=== PATIENT | female | born 1955 | race Caucasian/White ===

== ENCOUNTER 2017-12-30 11:59 | Emergency (ER) | payer OTHER ==
[~2017-12-30] VITALS: Ht 165.1 cm; Wt 99.8 kg
--- OUTSIDE RECORDS SUMMARY | 2017-12-30 12:02 | XMS REPORT | Clinical Summary ---
Author Author [facility] [facility] [place] [facility] Address Unknown Phone Unavailable Care Team Providers Care Shank Breaker Name Role Phone Jeramy Mckeon MD PCP Allergies Not on File Current Medications Not on file Active Problems Not on file Encounters Date Type Specialty Care Team Description 11/29/2017 Hospital Procedural Cardiology Bernabe Mckeon MD Right leg pain Encounter 11/29/2017 Lab Lab Bernabe Mckeon MD Canceled (Scheduling Error) 11/29/2017 Transcribe Procedural Cardiology Bernabe Mckeon MD Right leg pain (Primary Orders Dx) after 12/29/2016 Social History Tobacco Use Types Packs/Day Years Used Date Never Assessed Sex Assigned at Date Recorded Not on file Last Filed Vital Signs Not on file Plan of Treatment Health Maintenance Due Date Last Done Comments CERVICAL CANCER SCREENING 1974 BREAST CANCER SCREENING 2003 COLON CANCER SCREENING 2003 SHINGRIX VACCINE (#1) 2003 ZOSTER VACCINE 2013 INFLUENZA VACCINE 02/27/2018 Results * Pv duplex venous lower extremity (11/29/2017 2:01 PM) Specimen Performing Laboratory [facility] [address] [place] [address] Narrative Vascular Ultrasound Laboratory Lower Extremity Venous Report [address] [place] [address] Pat.Name:VERONICA KIDD Pat.ID:[id number] .Date: 11/29/2017Refer.MD:BERNABE MCKEON MD Exam Time: 1:37:00 PMStudy Type:LE Venous DOBAge:1955,62YSex: FEMALE Sonogrphr: Joanne Sarabia, JOE, RVT Pat. Stat.:Outpatient TapeVol: ED, CPT - 4: 06964 Echo Event ID:[id number] Order ID:[id number] Reason for Study:Right calf pain History / Clinical:Breast Ca Procedures:Grayscale/2D, Colorflow, Doppler Race:C SUMMARY: * Normal Reflux Criteria:< 0.5 seconds * Abnormal Reflux Criteria:> or equal to 0.5 seconds DUPLEX SCAN OBSERVATIONS Deep VeinsSuperficial Veins RightLeft RightLeft GSV (prox) Normal CFV Incompetent Incompetent (above knee) Femoral NormalGSV (dist) Normal Profunda Normal(below knee) Popliteal Normal PT (prox) Normal SSV Normal PT (dist) Normal Peroneal Normal RIGHT:There is normal compressibility with no evidence of echogenic material noted within the lumen of the visualized veins. Colorflow and Doppler signals are normal, except for common femoral vein, which is incompetent. PRELIMINARY FINDINGS 1. No evidence of venous thrombosis of the visualized veins. 2. Incompetence of right and left common femoral veins. Preliminary findings reported to Joanna at 3:01 pm on 11/29/17. PHYSICIAN INTERPRETATION Venous examination of the both lower extremities demonstrated no evidence of venous thrombosis in the visualized veins.Bilateral common femoral vein demonstrate venous reflux. Signed 11/29/2017 03:27 PM Luis Antonio Piña MD, RPVI Procedure Note Interface, Radiology Results In - 11/29/2017 3:27 PM CDT Vascular Ultrasound Laboratory Lower Extremity Venous Report [address] [place] [address] Pat.Name: VERONICA KIDD.ID: [id number] .Date: 11/29/2017 Refer.MD: BERNABE MCKEON MD Exam Time: 1:37:00 PM Study Type:LE Venous Age: 4 1955,62Y Sex: FEMALE Sonogrphr: Joanne Sarabia, JOE, RVT Pat. Stat.:Outpatient Tape Vol: ED, CPT - 4: 78234 Echo Event ID:[id number] Order ID: [id number] Reason for Study:Right calf pain History / Clinical:Breast Ca Procedures:Grayscale/2D, Colorflow, Doppler Race: C SUMMARY: * Normal Reflux Criteria: < 0.5 seconds * Abnormal Reflux Criteria: > or equal to 0.5 seconds DUPLEX SCAN OBSERVATIONS Deep Veins Superficial Veins Right Left Right Left GSV (prox) Normal CFV Incompetent Incompetent (above knee) Femoral Normal GSV (dist) Normal Profunda Normal (below knee) Popliteal Normal PT (prox) Normal SSV Normal PT (dist) Normal Peroneal Normal RIGHT: There is normal compressibility with no evidence of echogenic material noted within the lumen of the visualized veins. Colorflow and Doppler signals are normal, except for common femoral vein, which is incompetent. PRELIMINARY FINDINGS 1. No evidence of venous thrombosis of the visualized veins. 2. Incompetence of right and left common femoral veins. Preliminary findings reported to Joanna at 3:01 pm on 11/29/17. PHYSICIAN INTERPRETATION Venous examination of the both lower extremities demonstrated no evidence of venous thrombosis in the visualized veins. Bilateral common femoral vein demonstrate venous reflux. Signed 11/29/2017 03:27 PM Luis Antonio Piña MD, RPVI after 12/29/2016 Insurance Payer Benefit Subscriber ID Type Phone Address Plan / Group CESAR SOTO xxxxxxxxxxx O ACCESS/NET WORK Work: [id number] [place] [id number] Home:
--- OUTSIDE RECORDS SUMMARY | 2017-12-30 12:02 | XMS REPORT ---
[facility] Address Unknown Phone Unavailable Care Team Providers Care Crown Buffer Name Role Phone MIRIAM HARO Unavailable Unavailable Problems This patient has no known problems. Allergies, Adverse Reactions, Alerts This patient has no known allergies or adverse reactions. Medications This patient has no known medications. Results Test Description Test Time Test Comments Text Results Atomic Results Result Comments TISSUE EXAM 2017-12-07 09:20:00 Surgical Pathology Report Case: [id number] Authorizing Provider: Crayn Washburn, Collected: 11/23/2017 154 Ordering Location: [facility] Received: 11/23/2017 1543 Pathologist: Farnaz Knox MD Specimens: A) - Breast, Right, ULTRASOUND GUIDED BX OF RIGHT BREAST 3:00 MASS B) - Lymph Node, Axillary, Right, ULTRASOUND GUIDED BX OF RIGHT AXILLARY ABNORMAL LYMPH NODE REASON FOR ADDENDUM: TO REPORT HER2 FISH RESULT.HER2 AMPLIFICATION: POSITIVERATIO: 2.61AVERAGE NUMBER HER2 SIGNALS/ NUCLEUS: 6.52AVERAGE NUMBER [id number] SIGNALS/NUCLEUS: 2.5PB: [id number], [id number], [id number] electronically signed by Farnaz Knox MD on 12/07/2017 at 9:20 AMREASON FOR ADDENDUM: TO REPORT BIOMARKERS RESULTS. - BIOMARKERS PERFORMED ON SECTION # A-1 - ESTROGEN RECEPTOR: POSITIVE - PROPORTION SCORE: 5/5 - INTENSITY SCORE: 3/3 - SUMMARY: 100% POSITIVE, STRONG INTENSITY - PROGESTERONE RECEPTOR: POSITIVE - PROPORTION SCORE: 2/5 - INTENSITY SCORE: 1/3 - SUMMARY: 1% POSITIVE, INTERMEDIATE INTENSITY - HER 2 OVER-EXPRESSION: POSITIVE (SCORE: 3+), GRANULAR STAIN TISSUE SENT FOR HER2 FISH FOR POSITIVE CONFIRMATION - Ki67: 57% (cut off-20%)CAP REGULATION: FIXATION TIME FOR BIOMARKERS ASSESSMENTCollection date and time: 11/23/2017 1543Placed in fixative date and time: 11/23/2017 1543Removed from formalin date and time: 11/24/2017 0400Methodology: Fixation type and length: tissue was fixed in 10% neutral buffered formalin for a minimal of at least 6 hours and not longer than 72 hours. Antibody and Assay Methodology: Antibodies for ER, PgR, Her2 and Ki67 were assessed using clones SP1 ([place]), [id number] (DAKO), [id number] (FDA Approved [place] [employer]) and [id number] ([place]) respectively. Control Slides Examined: In-house known ER, GA, HER2 and Ki67 positive controls were evaluated along with test tissue. These control slides run alongside of the patients sample show appropriate staining. Internal controls when available are evaluated.Interpretive Criteria: The staining results according to the ASCO/ CAP guidelines for HER2 (Porter AC et al. Arch Pathol Lab Med 2012May 05 and ER/ GA (Kelli CEBALLOS et al. Arch Pathol Lab Med 2010; 134:e48-e72) by ASCO/CAP guidelines, ER and GA "positive" requires greater or equal to 1% tumor cells showing nuclear staining. HER 2 geovanna "positive" (3+) requires circumferential membrane staining that is complete and intense within more than 10% of the invasive tumor cells. The ER/GA Proportion Score indicates the proportion of positive staining tumor cells (0=none; 1 < 1/100; 2=1/100-1/10; 3=1/10-1/3; 4=1/ 3-2/3; 5> 2/3). The intensity score indicates the average intensity of positive staining tumor cells (0=none; 1=weak; 2=intermediate; 3=strong). For the purpose of defining "positive", the proportion and intensity scores were added to obtain a total score (range 0-8). ER and PgR "positive" (total score > 2) were defined in studies correlating IHC total scores with clinical outcome in patients receiving hormonal therapy (see: Modern Pathol 11:155, 1998; J Clin Oncol 17:1474, 1999; Int J Cancer 89:111, 2000; Breast Cancer Res Treat 76: S36[abst#30], 2002). Immunohistochemistry technical testing was performed at [facility], Pathology Laboratory where it was developed and its performance characteristics were determined. It has not been cleared or approved by the U.S. Food and Drug Administration. The FDA has determined that such clearance or approval is not necessary. The test is used for clinical purposes. It should not be regarded as investigational or for research. This laboratory is certified under the Clinical Laboratory Improvement Amendments of 1988 (CLIA-88) as qualified to perform high complexity clinical laboratory testing.Addendum electronically signed by Farnaz Knox MD on 11/27/2017 at 11:32 AMA. 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 LYMPH NODE, RIGHT AXILLARY REGION, ULTRASOUND GUIDED CORE BIOPSY: - METASTATIC CARCINOMA TO LYMPH NODE Signing Pathologist Direct Phone Line: [phone] signed by Farnaz Knox MD on 11/26/2017 at 12:08 PMBiomarkers are pending and an addendum will follow.A. 25052 x 1, 04518 x 4 B. 81462 x 1 3:00 mass consistent with carcinoma, axillary lymph node with focal cortical thickening. A. Ultrasound- guided biopsy of right breast 3:00 massB. Ultrasound-guided biopsy of right axilla abnormal lymph node. Specimen is received in two containers of formalin both labeled with the patient's information. Part A labeled "ultrasound-guided biopsy of right breast 3:00 mass" and it consists of three yellow-white breast core biopsies ranging in length from 1.6 to 2 cm. Ink code blue.Specimen is entirely submitted A1. Part B labeled "ultrasound-guided biopsy of right axillary abnormal lymph node" of three yellow-white breast core biopsies ranging in length from 0.2 to 1 cm. Ink code red. Specimen is entirely submitted B1. CG/bc A - B. Performed. MM, U/S, BIOPSY, BREAST, RIGHT 2017-11-28 09:51:00 Reason for Exam:->n63.1 Addendum [facility] [id number]: 11/28/2017 Deonte Portillo M.D. The malignant reports (metastatic node) were faxed and confirmed with Dr Haro's branch service representative Elke on 11/27/17 at 1316. Addendum EndsMRN#: [id number] - MM , U/S, BIOPSY, BREAST, RIGHTULTRASOUND GUIDED BIOPSY RIGHT BREAST WITH MARKING DEVICE INSERTED AND POST DIGITAL MAMMOGRAPHIC IMAGIN11/23/2017PATIENT CONSENT : The procedure, risks and benefits, alternatives were discussed with the patient. Informed consent was obtained. A time-out was performed. An ultrasound guided biopsy using real-time ultrasound was performed for the lymph node located in the right axilla. This was described on the previous ultrasound report. The skin was prepped in the usual manner. Local anesthetic was administered to the access site. A small incision was made in the breast. An 18 gauge biopsy needle was placed adjacent to the abnormality under ultrasound guidance. Once the needle was documented to be in the correct location, a specimen was obtained using an automated biopsy device. A Hydromark clip was inserted into the biopsy cavity. As a separate procedure in a separate room with a dedicated machine, post procedure digital mammographic imaging was obtained. The specimen was sent to the laboratory for pathological analysis. IMPRESSION: ULTRASOUND GUIDED BIOPSYUltrasound guided biopsy of the lymph node in the right axilla was successful with no apparent post procedure complications. Waiting for pathology results. Caryn Washburn M.D. mc/:11/23/2017 14:55:23 Hydrogeology Professor: Con LinnM.SHerb, [facility] [id number] , U/S, BIOPSY, BREAST, RIGHT 2017-11-28 09:49:00 Reason for Exam:->n63.1 Addendum BeginsMRN#: [id number]: 11/28/2017 Deonte Portillo M.D. The malignant reports ([facility]) were faxed and confirmed with Dr Haro's branch service representative Elke on 11/27/17 at 1316. Addendum EndsMRN#: [id number] - MM, U/S, BIOPSY, BREAST, RIGHTULTRASOUND GUIDED BIOPSY RIGHT BREAST WITH MARKING DEVICE INSERTED AND POST DIGITAL MAMMOGRAPHIC IMAGIN11/23/2017PATIENT CONSENT: The procedure, risks and benefits, alternatives were discussed with the patient. Informed consent was obtained. A time-out was performed. An ultrasound guided biopsy using real-time ultrasound was performed for the mass located in the right breast at 3 o'clock middle depth. This was described on the previous ultrasound report. The skin was prepped in the usual manner. Local anesthetic was administered to the access site. A small incision was made in the breast. A biopsy needle was placed adjacent to the abnormality under ultrasound guidance. Once the needle was documented to be in the correct location, three specimens were obtained using an Achieve automated firing device. A clip was inserted into the biopsy cavity. A skin adhesive was applied to the access site. As a separate procedure in a separate room with a dedicated machine, post procedure digital mammographic imaging was obtained. The specimens were sent to the laboratory for pathological analysis. IMPRESSION: ULTRASOUND GUIDED BIOPSYUltrasound guided biopsy of the mass in the right breast at 3 o' clock middle depth was successful with no apparent post procedure complications. Waiting for pathology results. Caryn Washburn M.D. mc/:2017 14:54:25 Hydrogeology Professor: Con YangSHerb, [facility] [id number] , DIGITAL, UNILATERAL, CONFER JJ, MAMMO, RIGHT INCLUDING CAD 2017-11-23 14 :56:00 right breast mass #[id number] - MM, DIGITAL, UNILATERAL, CONFER JJ, MAMMO, RIGHT INCLUDING CADUNILATERAL RIGHT DIGITAL PROBLEM SOLVING MAMMOGRAM WITH CAD POST-PROCEDURE IMAGING FOR MARKER PLACEMENT: 2017Comparison is made to exams dated: 11/23/2017 ultrasound biopsy and 2017 ultrasound biopsy - [facility]. There are scattered fibroglandular elements in the right breast that could obscure a lesion on mammography. Current study was also evaluated with a Computer Aided Detection (CAD) system. There is a marker clip in the appropriate position in the right axilla. This marker clip placement is at biopsy site. There also is a marker clip in the appropriate position in the right breast at 3 o'clock middle depth. This marker clip placement is at biopsy site. IMPRESSION: POST PROCEDURE MAMMOGRAM FOR MARKER PLACEMENTThere was a successful marker clip placement in the right axilla. There was a successful marker clip placement in the right breast at 3 o'clock middle depth. Caryn Washburn M.D. mc/:11/23/2017 14:56:56 Hydrogeology Professor: Marli Cabral RT(R)(M), [facility] Mammogram BI-RADS: Post-procedure mammogram for marker placement [id number] , U/S, BREAST, BILATERAL 2017-11-23 09:56:00 Reason for Exam:->breast mass #[id number] - MM, U/S, BREAST, BILATERALULTRASOUND OF BOTH BREASTS : 11/23/2017 Technique: Bilateral whole breast color flow and real-time ultrasound including evaluation of all four quadrants and the retroareolar regions of both breasts and bilateral axilla was performed. There is a 3.0 x 2.6 x 2.1 cm irregular mass in the right breast at 3 o'clock middle depth. There also is a lymph node with focal cortex thickening in the right axilla. There are no suspicious sonographic findings in the left breast. IMPRESSION: HIGHLY SUGGESTIVE OF MALIGNANCY - FOLLOW-UP RECOMMENDED The 3 cm irregular mass in the right breast at 3 o'clock middle depth is highly suggestive of malignancy. The lymph node with focal cortex thickening in the right axillary tail is at an intermediate suspicion for malignancy. Ultrasound-guided core needle biopsy is recommended and scheduled to be performed later today, 2017. Caryn Washburn M.D. /:11/23/2017 09:56:51 Biopsy Required Ultrasound BI-RADS: 5 Highly suggestive of malignancy [id number] , DIGITAL, MAMMO, SCREENING, BILATERAL INCLUDING CAD 2017-11-22 10:41:00 Reason for Exam:->Well woman #[id number] - MM, DIGITAL, MAMMO, SCREENING, BILATERAL INCLUDING CADBILATERAL DIGITAL SCREENING MAMMOGRAM WITH CAD : 11/22/2017CLINICAL: Routine screening mammogram. Comparison is made to exams dated: 01/07/2013 mammogram, 09/23/2010 mammogram, and 09/14/2010 mammogram - [facility]. There are scattered fibroglandular elements in both breasts that could obscure a lesion on mammography. Current study was also evaluated with a Computer Aided Detection ( CAD) system. Benign appearing calcifications are present in both breasts. There is a 3.5 cm irregular mass in the right breast at 3 o'clock middle depth. No other significant masses, calcifications, or other findings are seen in either breast. IMPRESSION: INCOMPLETE: NEEDS ADDITIONAL IMAGING EVALUATIONThe 3.5 cm irregular mass in the right breast is indeterminate. An ultrasound is recommended for further evaluation. Santos Nolan M.D. ds/:2017 10:41:23 Addional Imaging Needed Mammogram BI-RADS: 0 Indeterminate G0202 , BONE DENSITY STUDY 2017-11-22 10:31:00 Reason for Exam:->Menopausal syndrome FINAL REPORT Bone Mineral Density Date: November 22, 2017 Comparison: August 24, 2006 Clinical History: Osteoporosis Screening Report: Bone Mineral Density Measurement: Lumbar Spine: 1.237 gm/ gp4Ickd Femoral Neck: 1.001 gm/cm2 Standard Deviation as compared to the young adult population (T -score) Lumbar Spine: 0.5 Mean Femoral Neck: -0.3 Standard Deviation as compared to the age matched controls (Z-score) Lumbar Spine: 0.9Mean Femoral Neck: 0.4 These findings are consistent with a normal bone mineral density of the lumbar spine. There is no increased risk of an osteoporotic fracture of the lumbar spine as compared to the young adult population. These findings are consistent with a normal bone mineral density of the femoral neck . There is no increased risk of an osteoporotic fracture of the femoral neck as compared to the young adult population. Comment: Computer printout from the exam will follow this report.The visualized regional skeleton appears aligned. There has been an interval decrease in the bone mineral density as compared to the baseline study. Signed: Reena Tran Verified Date/Time: 11/22/2017 10:31:44 Reading Location: [facility] Radiology Reading Room 10: 31 AM RAD, CHEST, 2 VIEWS 2017-11-22 09:58:00 Reason for Exam:->Encounter for screening for respiratory tuberculosis [Z11.1] FINAL REPORT Chest radiograph Clinical History: TuberculosisComparison: No comparisonViews: Two Chest x-ray:The cardiac and mediastinal silhouettes are unremarkable. There is no evidence of a pneumothorax. There is no evidence of a pleural effusion. There is no evidence of overt cardiac failure. The visible regional skeleton is intact. There is no evidence of a focal parenchymal opacity. Impression:No active cardiopulmonary disease. Signed: Reena Tran Verified Date/Time: 11/22/2017 09:58:05 Reading Location: [facility] Radiology Reading Room
--- OUTSIDE RECORDS SUMMARY | 2017-12-30 12:02 | XMS REPORT | Clinical Summary ---
Author Author [facility] Address Unknown Phone Unavailable Care Team Providers Care Enrollment Coordinator Name Role Phone PCP Unavailable Allergies Active Allergy Reactions Severity Noted Date Comments Penicillins Rash Low 11/23/2017 Current Medications Prescription Sig. Disp. Refills Start End Date Status Date cloNIDine HCl (CATAPRES) Take 0.1 mg by mouth 2 Active 0.1 MG tablet (two) times daily. amlodipine-benazepril Take 1 capsule by mouth Active (LOTREL) 5-40 mg per daily. capsule Active Problems Not on file Encounters Date Type Specialty Care Team Description 11/23/2017 [facility] 11/22/2017 [facility] j[facility]son Screening breast Encounter examination 11/22/2017 [facility] Menopausal disorder Encounter 11/22/2017 [facility] Screening examination for Encounter pulmonary tuberculosis 11/16/2017 Outside Orders Central Scheduling Gerry Ferrera Menopausal disorder (Primary Dx);Screening breast examination;Screening examination for pulmonary tuberculosis;Breast mass;Mass of right breast after 12/29/2016 Social History Tobacco Use Types Packs/Day Years Used Date Never Smoker Smokeless Tobacco: Never Used Sex Assigned at Date Recorded Not on file Last Filed Vital Signs Vital Sign Reading Time Taken Blood Pressure 150/75 11/23/2017 2:13 PM CDT Pulse 90 11/23/2017 2:13 PM CDT Temperature - - Respiratory Rate 19 11/23/2017 2:13 PM CDT Oxygen Saturation 98% 11/23/2017 2:13 PM CDT Inhaled Oxygen - - Concentration Weight 99.8 kg (220 lb) 11/23/2017 12:45 PM CDT Height 165.1 cm (5' 5") 11/23/2017 12:45 PM CDT Body Mass Index 36.61 11/23/2017 12:45 PM CDT Plan of Treatment Not on file Results * Tissue Exam (11/23/2017 3:43 PM) Component Value Ref Range Case Report Surgical Pathology Report Case: [id number] Authorizing Provider: Caryn Washburn, Collected: 11/23/2017 Anna3 Ordering Location: [facility] Received: 018 1543 Pathologist: Farnaz Knox MD Specimens: A) - Breast, Right, ULTRASOUND GUIDED BX OF RIGHT BREAST 3:00 MASS B) - Lymph Node, Axillary, Right, ULTRASOUND GUIDED BX OF RIGHT AXILLARY ABNORMAL LYMPH NODE ADDENDUM 2 REASON FOR ADDENDUM: TO REPORT HER2 FISH RESULT. HER2 AMPLIFICATION: POSITIVE RATIO: 2.61 AVERAGE NUMBER HER2 SIGNALS/ NUCLEUS: 6.52 AVERAGE NUMBER [id number] SIGNALS/NUCLEUS: 2.5 PB: [id number], 00516, [id number] ADDENDUM REASON FOR ADDENDUM: TO REPORT BIOMARKERS RESULTS. - [...] FOR POSITIVE CONFIRMATION - Ki67: 57% (cut off-20%) CAP REGULATION: FIXATION TIME FOR BIOMARKERS ASSESSMENT Collection date and time: 11/23/2017 1543 Placed in fixative date and time: 11/23/2017 1543 Removed from formalin date and time: 11/24/2017 0400 Methodology: Fixation type and length: tissue was fixed in 10% neutral buffered formalin for a minimal of at least 6 hours and not longer than 72 hours. Antibody and Assay Methodology: Antibodies for ER, PgR, Her2 and Ki67 were assessed using clones [id number] (Beacon), [id number] (DAKO), [id number] (FDA Approved [employer]) and [id number] (Beacon) respectively. Control Slides Examined: In-house known ER, NV, HER2 and Ki67 positive controls were evaluated along with test tissue. These control slides run alongside of the patients sample show appropriate staining. Internal controls when available are evaluated. Interpretive Criteria: The staining results according to the ASCO/CAP guidelines for HER2 (Porter GILBERT et al. Arch Pathol Lab Med 2012May 05 and ER/NV (Kelli CEBALLOS et al. Arch Pathol Lab Med 2010; 134:e48-e72) by ASCO/CAP guidelines, ER and NV positive requires greater or equal to 1% tumor cells showing nuclear staining. HER 2 geovanna positive (3+) requires circumferential membrane staining that is complete and intense within more than 10% of the invasive tumor cells. The ER/NV Proportion Score indicates the proportion of positive staining tumor cells (0=none; 1 < 1/100; 2=1/100-1/10; 3=1/10-1/3; 4=1/3-2/3; 5> 2/3). The intensity score indicates the average intensity of positive staining tumor cells (0=none; 1=weak; 2=intermediate; 3=strong). For the purpose of defining "positive", the proportion and intensity scores were added to obtain a total score (range 0-8). ER and PgR "positive" (total score >2) were defined in studies correlating IHC total scores with clinical outcome in patients receiving hormonal therapy (see: Modern Pathol 11:155, 1998; J Clin Oncol 17:1474, 1999; Int J Cancer 89:111, 2000; Breast Cancer Res Treat 76:S36[abst#30], 2002). Immunohistochemistry technical testing was performed at [facility], Pathology Laboratory where it was developed [...] qualified to perform high complexity clinical laboratory testing. DIAGNOSIS A. BREAST, RIGHT, 3:00 O'CLOCK, ULTRASOUND GUIDED CORE [...] LYMPH NODE Signing Pathologist Direct Phone Line: [phone] COMMENT Biomarkers are pending and an addendum will follow. CPT Code(s) A. 11113 x 1, 83262 x 4 B. 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 SPECIMEN SOURCE A. Ultrasound-guided biopsy of right breast 3:00 mass B. Ultrasound-guided biopsy of right axilla abnormal lymph node. GROSS DESCRIPTION Specimen is received in two containers of formalin both labeled with the patient's information. Part A labeled "ultrasound-guided biopsy of right breast 3:00 mass" and it consists of three yellow-white breast core biopsies ranging in length from 1.6 to 2 cm. Ink code blue. Specimen is entirely submitted A1. Part B labeled "ultrasound-guided biopsy of right axillary abnormal lymph node" of three yellow-white breast core biopsies ranging in length from 0.2 to 1 cm. Ink code red. Specimen is entirely submitted B1. /bc MICROSCOPIC DESCRIPTION A - B. Performed. Specimen Performing Laboratory Tissue - Lymph Node, [facility] Axillary, Right [address] [place] [address] * MM, DIGITAL, UNILATERAL, CONFER JJ, MAMMO, RIGHT (11/23/2017 2:13 PM) Specimen Performing Laboratory [facility] Narrative #[id number] - MM, DIGITAL, UNILATERAL, CONFER JJ, MAMMO, RIGHT INCLUDING CAD UNILATERAL RIGHT DIGITAL PROBLEM SOLVING MAMMOGRAM WITH CAD POST-PROCEDURE IMAGING FOR MARKER PLACEMENT: 11/23/2017 Comparison is made to exams dated:11/23/2017 ultrasound biopsy and 11/23/2017 ultrasound biopsy - Pending sale to [facility]. There are scattered fibroglandular elements in the right breast that could obscure a lesion on mammography. Current study was also evaluated with a Computer Aided Detection (CAD) system. There is a marker clip in the appropriate position in the right axilla.This marker clip placement is at biopsy site. There also is a marker clip in the appropriate position in the right breast at 3 o'clock middle depth.This marker clip placement is at biopsy site. IMPRESSION: POST PROCEDURE MAMMOGRAM FOR MARKER PLACEMENT There was a successful marker clip placement in the right axilla. There was a successful marker clip placement in the right breast at 3 o'clock middle depth. Caryn Washburn M.D. /:11/23/2017 14:56:56 Staple Processing Machine Operator: Marli URRUTIA)(Radha), Pending sale to [facility] Mammogram BI-RADS: Post-procedure mammogram for marker placement [id number] Procedure Note Interface, External Ris In - 11/23/2017 4:04 PM CDT #[id number] - MM, DIGITAL, UNILATERAL, CONFER JJ, MAMMO, RIGHT INCLUDING CAD UNILATERAL RIGHT DIGITAL PROBLEM SOLVING MAMMOGRAM WITH CAD POST-PROCEDURE IMAGING FOR MARKER PLACEMENT: 11/23/2017 Comparison is made to exams dated: 11/23/2017 ultrasound biopsy and 11/23/2017 ultrasound biopsy - Pending sale to [facility]. There are scattered fibroglandular elements in the [...] site. IMPRESSION: POST PROCEDURE MAMMOGRAM FOR MARKER PLACEMENT There was a successful marker clip placement in the right axilla. There was a successful marker clip placement in the right breast at 3 o'clock middle depth. Caryn Washburn M.D. /:11/23/2017 14:56:56 Staple Processing Machine Operator: Marli URRUTIA)(Radha), Pending sale to [facility] Mammogram BI-RADS: Post-procedure mammogram for marker placement [id number] * US guided breast biopsy right (11/23/2017 1:46 PM) Only the most recent of 2 results within the time period is included. Specimen Performing Laboratory [facility] Narrative Addendum Begins AMENDMENT: 11/28/2017 Deonte Portillo M.D. The malignant reports ([facility]) were faxed and confirmed with Dr Ferrera's field sales representative Elke on 11/27/17 at 1316. Addendum Ends #[id number] - MM, U/S, BIOPSY, BREAST, RIGHT ULTRASOUND GUIDED BIOPSY RIGHT BREAST WITH MARKING DEVICE INSERTED AND POST DIGITAL MAMMOGRAPHIC IMAGIN11/23/2017 PATIENT CONSENT: The procedure, risks and benefits, alternatives were discussed with the patient. Informed consent was obtained. A time-out was performed. An ultrasound guided biopsy using real-time ultrasound was performed for the mass located in the right breast at 3 o'clock middle depth. This was described on the previous ultrasound report.The skin was prepped in the usual manner.Local anesthetic was administered to the access site.A small incision was made in the breast.A biopsy needle was placed adjacent to the abnormality under ultrasound guidance.Once the needle was documented to be in the correct location, three specimens were obtained using an Achieve automated firing device.A clip was inserted into the biopsy cavity.A skin adhesive was applied to the access site.As a separate procedure in a separate room with a dedicated machine, post procedure digital mammographic imaging was obtained.The specimens were sent to the laboratory for pathological analysis. IMPRESSION: ULTRASOUND GUIDED BIOPSY Ultrasound guided biopsy of the mass in the right breast at 3 o'clock middle depth was successful with no apparent post procedure complications.Waiting for pathology results. Caryn Washburn M.D. /:11/23/2017 14:54:25 Staple Processing Machine Operator: Con LinnM.S., Pending sale to [facility] [id number] Procedure Note Interface, External Ris In - 11/28/2017 10:06 AM CDT Addendum Begins AMENDMENT: 11/28/2017 Deonte Portillo M.D. The malignant reports ([facility]) were faxed and confirmed with Dr Ferrera's field sales representative Elke on 11/27/17 at 1316. Addendum Ends #[id number] - MM, U/S, BIOPSY, BREAST, RIGHT ULTRASOUND GUIDED BIOPSY RIGHT BREAST WITH MARKING DEVICE INSERTED AND POST DIGITAL MAMMOGRAPHIC IMAGIN11/23/2017 PATIENT CONSENT: The procedure, risks and benefits, alternatives [...] laboratory for pathological analysis. IMPRESSION: ULTRASOUND GUIDED BIOPSY Ultrasound guided biopsy of the mass in the right breast at 3 o'clock middle depth was successful with no apparent post procedure complications. Waiting for pathology results. Caryn Washbrun M.D. /:11/23/2017 14:54:25 Staple Processing Machine Operator: Con LinnM.S., Pending sale to [facility] [id number] * US Breast Bilateral (11/23/2017 9:49 AM) Specimen Performing Laboratory [facility] Narrative #[id number] - MM, U/S, BREAST, BILATERAL ULTRASOUND OF BOTH BREASTS: 11/23/2017 Technique: Bilateral whole breast color flow [...] and scheduled to be performed later today, 11/23/2017. Caryn Washburn M.D. /:11/23/2017 09:56:51 Biopsy Required Ultrasound BI-RADS: 5 Highly suggestive of malignancy [id number] Procedure Note Interface, External Ris In - 11/23/2017 10:01 AM CDT #[id number] - MM, U/S, BREAST, BILATERAL ULTRASOUND OF BOTH BREASTS: 11/23/2017 Technique: Bilateral whole breast color flow [...] and scheduled to be performed later today, 11/23/2017. Caryn Washburn M.D. /:11/23/2017 09:56:51 Biopsy Required Ultrasound BI-RADS: 5 Highly suggestive of malignancy [id number] * Mammogram Screening Bilateral (11/22/2017 10:24 AM) Specimen Performing Laboratory [facility] Narrative #[id number] - MM, DIGITAL, MAMMO, SCREENING, BILATERAL INCLUDING CAD BILATERAL DIGITAL SCREENING MAMMOGRAM WITH CAD: 11/22/2017 CLINICAL: Routine screening mammogram. Comparison is made to exams dated:01/07/2013 mammogram, 09/23/2010 mammogram, and 09/14/2010 mammogram - Pending sale to [facility]. There are scattered fibroglandular elements in both breasts that could obscure a lesion on mammography. Current study was also evaluated with a Computer Aided Detection (CAD) system. Benign appearing calcifications are present in both breasts. There is a 3.5 cm irregular mass in the right breast at 3 o'clock middle depth. No other significant masses, calcifications, or other findings are seen in either breast. IMPRESSION: INCOMPLETE: NEEDS ADDITIONAL IMAGING EVALUATION The 3.5 cm irregular mass in the right breast is indeterminate.An ultrasound is recommended for further evaluation. Santos Nolan M.D. ds/:11/22/2017 10:41:23 Addional Imaging Needed Mammogram BI-RADS: 0 Indeterminate G0202 Procedure Note Interface, External Ris In - 11/22/2017 11:04 AM CDT #[id number] - MM, DIGITAL, MAMMO, SCREENING, BILATERAL INCLUDING CAD BILATERAL DIGITAL SCREENING MAMMOGRAM WITH CAD: 11/22/2017 CLINICAL: Routine screening mammogram. Comparison is made to exams dated: 01/07/2013 mammogram, 09/23/2010 mammogram, and 09/14/2010 mammogram - Pending sale to [facility]. There are scattered fibroglandular elements in both breasts that could obscure a lesion on mammography. Current study was also evaluated with a Computer Aided Detection (CAD) system. Benign appearing calcifications are present in both breasts. There is a 3.5 cm irregular mass in the right breast at 3 o'clock middle depth. No other significant masses, calcifications, or other findings are seen in either breast. IMPRESSION: INCOMPLETE: NEEDS ADDITIONAL IMAGING EVALUATION The 3.5 cm irregular mass in the right breast is indeterminate. An ultrasound is recommended for further evaluation. Santos Nolan M.D. ds/:11/22/2017 10:41:23 Addional Imaging Needed Mammogram BI-RADS: 0 Indeterminate G0202 * XR DXA Bone Density Study (11/22/2017 9:54 AM) Specimen Performing Laboratory [facility] Narrative FINAL REPORT Bone Mineral Density Date:November 22, 2017 Comparison: August 24, 2006 Clinical History: Osteoporosis Screening Report: Bone Mineral Density Measurement: Lumbar Spine: 1.237 gm/cm2 Mean Femoral Neck: 1.001 gm/cm2 Standard Deviation as compared to the young adult population (T -score) Lumbar Spine: 0.5 Mean Femoral Neck: -0.3 Standard Deviation as compared to the age matched controls (Z-score) Lumbar Spine: 0.9 Mean Femoral Neck: 0.4 These findings are consistent with a normal bone mineral density of the lumbar spine.There is no increased risk of an osteoporotic fracture of the lumbar spine as compared to the young adult population. These findings are consistent with a normal bone mineral density of the femoral neck .There is no increased risk of an osteoporotic fracture of the femoral neck as compared to the young adult population. Comment: Computer printout from the exam will follow this report. The visualized regional skeleton appears aligned. There has been an interval decrease in the bone mineral density as compared to the baseline study. Signed: Reena Tran MD Report Verified Date/Time:11/22/2017 10:31:44 Reading Location: [facility] Radiology Reading Room Procedure Note Interface, External Ris In - 11/22/2017 10:33 AM CDT FINAL REPORT Bone Mineral Density Date: November 22, 2017 Comparison: August 24, 2006 Clinical History: Osteoporosis Screening Report: Bone Mineral Density Measurement: Lumbar Spine: 1.237 gm/cm2 Mean Femoral Neck: 1.001 gm/cm2 Standard Deviation as compared to the young adult population (T -score) Lumbar Spine: 0.5 Mean Femoral Neck: -0.3 Standard Deviation as compared to the age matched controls (Z-score) Lumbar Spine: 0.9 Mean Femoral Neck: 0.4 These findings are consistent [...] printout from the exam will follow this report. The visualized regional skeleton appears aligned. There has been an interval decrease in the bone mineral density as compared to the baseline study. Signed: Reena Tran MD Report Verified Date/Time: 11/22/2017 10:31:44 Reading Location: [facility] Radiology Reading Room * XR Chest 2 Views (11/22/2017 9:41 AM) Specimen Performing Laboratory [facility] Narrative FINAL REPORT Chest radiograph Clinical History: Tuberculosis Comparison: No comparison Views: Two Chest x-ray: The cardiac and mediastinal silhouettes are unremarkable.There is no evidence of a pneumothorax.There is no evidence of apleural effusion.There is no evidence of overt cardiac failure.The visible regional skeleton is intact.There is no evidence of a focal parenchymal opacity. Impression: No active cardiopulmonary disease. Signed: Reena Tran MD Report Verified Date/Time:11/22/2017 09:58:05 Reading Location: [facility] Radiology Reading Room Procedure Note Interface, External Ris In - 11/22/2017 10:00 AM CDT FINAL REPORT Chest radiograph Clinical History: Tuberculosis Comparison: No comparison Views: Two Chest x-ray: The cardiac and mediastinal silhouettes are unremarkable. There is no evidence of a pneumothorax. There is no evidence of a pleural effusion. There is no evidence of overt cardiac failure. The visible regional skeleton is intact. There is no evidence of a focal parenchymal opacity. Impression: No active cardiopulmonary disease. Signed: Reena Tran MD Report Verified Date/Time: 11/22/2017 09:58:05 Reading Location: [facility] Radiology Reading Room after 12/29/2016
[2017-12-30] MEDS ORDERED: SODIUM CHLORIDE 0.9% 1000ML 1,000 ML IV STA (12:34)
[2017-12-30] MEDS ORDERED: POTASSIUM CHLORIDE 20 MEQ TAB CR PO STA (13:34)
[2017-12-30 14:35] VITALS: BP 127/65
== END 2017-12-30 14:15 | disposition home or self-care (01) ==
LOC: FSED 11:59
DX: R11.2 Nausea with vomiting, unspecified (principal); R19.7 Diarrhea, unspecified; I10 Essential (primary) hypertension; R00.0 Tachycardia, unspecified; E87.6 Hypokalemia; C50.911 Malignant neoplasm of unspecified site of right female breast; Z79.899 Other long term (current) drug therapy
CPT/HCPCS: 80053; 85025; 93005; 99283; J7030

== ENCOUNTER 2018-02-23 17:09 | Emergency (ER) | payer OTHER ==
[2018-02-23] MEDS ORDERED: KCL 20MEQ/.9 SOD CHL 1,000 ML IV ONE (17:30)
[2018-02-23] MEDS ORDERED: METHYLPREDNISOLONE SOD SUCC 125 MG/2ML VIAL IV ONE (17:30)
[2018-02-23] MEDS ORDERED: KCL 20MEQ/.9 SOD CHL 1,000 ML IV SCH (18:30)
== END 2018-02-23 17:30 | disposition left against medical advice (07) ==
LOC: FSED 17:09
DX: R53.1 Weakness (principal); C50.919 Malignant neoplasm of unspecified site of unspecified female breast; Z79.899 Other long term (current) drug therapy
CPT/HCPCS: 99282; J2930